=== PATIENT | male | born 1955 | race American Indian/Alaskan Native ===

== ENCOUNTER 2017-03-18 16:15 | Emergency (ER) | payer OTHER ==
[2017-03-18 17:35] LABS: Basophils % (Auto) 0.4 % (0.0-1.8); Eosinophils % (Auto) 2.4 % (0.0-4.3); Hematocrit 39.7 % (35.5-45.6); Hemoglobin 13.4 gm/dl (11.8-15.2); Mean Corpuscular HGB Conc 34 % (32-34); Mean Corpuscular Hemoglobin 30 pg (28-32); Mean Corpuscular Volume 89 fl (84-94); Platelet Count 289 K/mm3 (140-440); Red Blood Count 4.45 M/mm3 (3.65-5.03); Red Cell Distribution Width 14.2 % (13.2-15.2)
[2017-03-18 17:40] LABS: Alanine Aminotransferase 37 units/L (7-56); Albumin/Globulin Ratio 1.4 %; Alkaline Phosphatase 95 units/L (35-129); Anion Gap 16 mmol/L; BUN/Creatinine Ratio 13; Blood Urea Nitrogen 12 mg/dL (9-20); Carbon Dioxide 28 mmol/L (22-30); Glucose 106 mg/dL (75-100); Potassium 4.1 mmol/L (3.6-5.0); Sodium 141 mmol/L (137-145); Total Protein 6.9 g/dL (6.3-8.2)
[2017-03-18] MEDS ORDERED: LOVENOX SUB-Q ONE (23:39)
[2017-03-18] MEDS ORDERED: NORCO 5/325 PO ONE (23:39)
--- NOTE | 2017-03-18 23:43 | Emergency Department Report ---
<LISSETH MAYER - Last Filed: 03/19/17 02:43> ED Lower Extremity HPI - General Chief Complaint: Extremity Problem,Nontraumatic Stated Complaint: POSS. BLOOD CLOT IN LEG Time Seen by Provider: 03/18/17 22:10 Source: patient Mode of arrival: Ambulatory Limitations: No Limitations - History of Present Illness Initial Comments: 61-year-old male presents with complaint of right lower extremity calf swelling and tenderness for one week. Denies any direct trauma or straining his leg. Denies any fevers or chills. Patient denies chest pain shortness of breath nausea vomiting weakness or palpitations. MD Complaint: other (right calf discomfort) Onset/Timin -: week(s) Injury: Leg: Right (right calf) Severity: moderate Severity scale (0 -10): 5 - Related Data Previous Rx's Medication Instructions Recorded Last Taken Type Cephalexin [Keflex] 500 mg PO Q12HR #14 cap 03/18/17 Unknown Rx Ibuprofen [Motrin] 800 mg PO Q8HR PRN #30 tablet 03/18/17 Unknown Rx Allergies Allergy/AdvReac Type Severity Reaction Status Date / Time No Known Allergies Allergy Verified 03/18/17 17:03 ED Review of Systems ROS: Stated complaint: POSS. BLOOD CLOT IN LEG Other details as noted in HPI Constitutional: denies: chills, fever Eyes: denies: eye pain, eye discharge, vision change ENT: denies: ear pain, throat pain Respiratory: denies: cough, shortness of breath, wheezing Cardiovascular: denies: chest pain, palpitations Endocrine: no symptoms reported Gastrointestinal: denies: abdominal pain, nausea, diarrhea Genitourinary: denies: urgency, dysuria Musculoskeletal: denies: back pain, joint swelling, arthralgia Skin: as per HPI. denies: rash, lesions Neurological: denies: headache, weakness, paresthesias Psychiatric: denies: anxiety, depression Hematological/Lymphatic: denies: easy bleeding, easy bruising ED Past Medical Hx - Past Medical History Previous Medical History?: No - Surgical History Past Surgical History?: No - Social History Smoking Status: Never Smoker Substance Use Type: None - Medications Home Medications: Home Medications Medication Instructions Recorded Confirmed Last Taken Type Cephalexin [Keflex] 500 mg PO Q12HR #14 cap 03/18/17 Unknown Rx Ibuprofen [Motrin] 800 mg PO Q8HR PRN #30 tablet 03/18/17 Unknown Rx ED Physical Exam - General Limitations: No Limitations General appearance: alert, in no apparent distress - Head Head exam: Present: atraumatic, normocephalic - Eye Eye exam: Present: normal appearance, PERRL, EOMI - ENT ENT exam: Present: mucous membranes moist - Neck Neck exam: Present: normal inspection - Respiratory Respiratory exam: Present: normal lung sounds bilaterally. Absent: respiratory distress - Cardiovascular Cardiovascular Exam: Present: regular rate, normal rhythm. Absent: systolic murmur, diastolic murmur, rubs, gallop - GI/Abdominal GI/Abdominal exam: Present: soft, normal bowel sounds - Rectal Rectal exam: Present: deferred - Extremities Exam Extremities exam: Present: normal inspection - Expanded Lower Extremity Exam Right Knee exam: Present: normal inspection, full ROM Lower Leg exam: Present: full ROM, tenderness, swelling, erythema Ankle exam: Present: normal inspection, full ROM - Back Exam Back exam: Present: normal inspection - Neurological Exam Neurological exam: Present: alert, oriented X3 - Psychiatric Psychiatric exam: Present: normal affect, normal mood - Skin Skin exam: Present: warm, dry, intact, normal color. Absent: rash ED Course Vital Signs 03/18/17 03/18/17 17:03 23:55 Temperature 98.5 F 98.4 F Pulse Rate 88 61 Respiratory 16 16 Rate Blood Pressure 139/85 Blood Pressure 116/86 [Right] O2 Sat by Pulse 97 97 Oximetry ED Lower Extremity MDM - Lab Data Result diagrams: 03/18/17 17:14 03/18/17 17:14 - Medical Decision Making A/P: Suspicion for right lower extremity DVT, cellulitis 1-d-dimer positive, patient relates history of right calf pain swelling and discomfort with some redness near area. wells score 2 points High risk group for DVT. Likely according to Wells DVT studies. 2-short course of Keflex, Motrin when necessary 3-case discussed with Dr. Alex 4-as vascular lab is closed at this time we'll give patient ambulatory order for vascular study first thing in the morning. Patient advised to return for this and agreed to do so. Will give patient one dose of Lovenox to cover him empirically for 12 hours. Critical care attestation.: If time is entered above; I have spent that time in minutes in the direct care of this critically ill patient, excluding procedure time. ED Disposition Disposition: DC-01 TO HOME OR SELFCARE Is pt being admited?: No Does the pt Need Aspirin: No Condition: Stable Instructions: Cellulitis (ED), Deep Venous Thrombosis (ED), Leg Edema (ED) Additional Instructions: PLEASE TO [facility] ON 03/19/17 for extremity study MARLENI. Prescriptions: Cephalexin [Keflex] 500 mg PO Q12HR #14 cap Ibuprofen [Motrin] 800 mg PO Q8HR PRN #30 tablet PRN Reason: Pain Referrals: [facility] [Outside] - 3-5 Days [facility] [Outside] - 3-5 Days Forms: Work/School Release Form(ED) Time of Disposition: 23:43 <SANTOS ALEX - Last Filed: 03/19/17 23:37> ED Lower Extremity MDM - Lab Data Result diagrams: 03/18/17 17:14 03/18/17 17:14 - Medical Decision Making doppler result reviewed today, negative for dvt
[2017-03-19 02:44] VITALS: BP 116/86
== END 2017-03-18 23:55 | disposition home or self-care (01) ==
LOC: ED 16:15
DX: M79.661 Pain in right lower leg (principal)
CPT/HCPCS: 36415; 80053; 85025; 85379; 96372; 99283; J1650

== ENCOUNTER 2017-03-19 09:03 | Outpatient (CLI) | payer SELFPAY | END 2017-03-19 09:04 | disposition home or self-care (01) | LOC: VAS 09:03 | PROVIDERS: ATTEND Physician Assistant | DX: M79.661 Pain in right lower leg (principal); M79.89 Other specified soft tissue disorders ==